=== PATIENT | female | born 1990 | race Caucasian/White ===

== ENCOUNTER 2018-06-07 10:08 | Observation (INO) | payer OTHER ==
[~2018-06-07] VITALS: Ht 157.5 cm; Wt 99.3 kg
[2018-06-07] MEDS ORDERED: PREN-380 PO (10:36)
[2018-06-07] MEDS ORDERED: FERR325E14 PO (10:36)
[2018-06-07 11:00] VITALS: BP 111/77
== END 2018-06-07 13:40 | disposition home or self-care (01) ==
LOC: INTOOBSV 10:08 → MLD 10:08
PROVIDERS: ADMIT Obstetrics & Gynecology; ATTEND Obstetrics & Gynecology
DX: O26.893 Other specified pregnancy related conditions, third trimester (principal); R10.9 Unspecified abdominal pain; Z3A.38 38 weeks gestation of pregnancy
CPT/HCPCS: 76805; G0378; Q0092; 59025; 81000

== ENCOUNTER 2018-06-11 18:03 | Inpatient (IN) | payer OTHER ==
[~2018-06-11] VITALS: Ht 157.5 cm; Wt 102.5 kg
[~2018-06-11 18:03] MED LIST: FERR325E14 PO; PREN-380 PO
[2018-06-11] MEDS ORDERED: OXYTOCIN 20 UNITS in LACTATED RINGERS 1,000 ML IV SCH (18:09)
[2018-06-11] MEDS ORDERED: ONDANSETRON 4 MG/2 ML VIAL IVP PRN (18:10)
[2018-06-11] MEDS: LACTATED RINGERS 1,000 ML IV SCH (18:50)
[2018-06-11 19:35] LABS: BASOPHILS # (AUTO) 0.1 K/uL (0.00-0.22); BASOPHILS % (AUTO) 0.5 % (0.0-2.0); EOSINOPHILS # (AUTO) 0.1 K/uL (0-0.4); EOSINOPHILS % (AUTO) 0.8 % (0.0-4.0); HEMATOCRIT 35.2 % (36-48); HEMOGLOBIN 11.3 g/dL (12.0-16.0); LYMPHOCYTES % (AUTO) 17.8 % (20.5-51.1); MEAN CORPUSCULAR HEMOGLOBIN 26 pg (27-31); MEAN CORPUSCULAR HGB CONC 32 g/dL (33-37); MEAN CORPUSCULAR VOLUME 80.6 fL (80-94); MONOCYTES # (AUTO) 0.7 K/uL (0.8-1.0); MONOCYTES % (AUTO) 5.9 % (1.7-9.3); NEUTROPHILS # (AUTO) 8.5 K/uL (1.8-7.7); PLATELET COUNT (AUTO) 313 K/uL (140-450); RED BLOOD CELL COUNT(AUTO) 4.37 MIL/uL (4.20-5.40); RED CELL DISTRIBUTION WIDTH 15.8 % (11.6-13.7); WHITE BLOOD COUNT (AUTO) 11.3 K/uL (4.8-10.8)
[2018-06-11 19:49] LABS: APPEARANCE,URINE CLEAR (CLEAR); BILIRUBIN,URINE NEGATIVE (NEGATIVE); BLOOD, URINE NEGATIVE (NEGATIVE); COLOR,URINE YELLOW (YELLOW); LEUKOCYTE ESTERASE ,URINE TRACE (NEGATIVE); NITRITE, URINE NEGATIVE (NEGATIVE); UGLUCOSE NEGATIVE (NEGATIVE)
[2018-06-11 20:01] LABS: RBC,URINE 0-5 (RARE) /HPF (0-5)
[2018-06-11 20:01] LABS: ALBUMIN 2.2 g/dL (3.4-5.0); ANION GAP 11.6 (8-16); CARBON DIOXIDE 22.4 mmol/L (21-32); CREATININE 0.6 mg/dL (0.6-1.3); TOTAL BILIRUBIN 0.2 mg/dL (0.0-1.0)
[2018-06-11] MEDS ORDERED: AMPICILLIN 2,000 MG in NACL 0.9% 100 ML IV ONE (20:25)
[2018-06-11 20:36] VITALS: BP 103/61
[2018-06-11] MEDS ORDERED: AMPICILLIN 2,000 MG VIAL ONE (20:38)
[2018-06-11] MEDS ORDERED: MISOPROSTOL 25 MCG TAB ONE (21:08)
[2018-06-11] MEDS: MISOPROSTOL 25 MCG TAB VG SCH (21:09)
[2018-06-12] MEDS: AMPICILLIN 1,000 MG in NACL 0.9% 50 ML IV SCH ×4 (00:25→20:45)
[2018-06-12] MEDS ORDERED: AMPICILLIN 1,000 MG VIAL ONE ×6 (00:28→20:47)
[2018-06-12] MEDS: LACTATED RINGERS 1,000 ML IV SCH ×2 (01:20→11:27)
[2018-06-12] MEDS ORDERED: OXYTOCIN 20 UNITS/LR PREMIX 1,000 ML IV ONE (03:51)
[2018-06-12 04:26] LABS: BARBITURATE, URINE NEG. ng/ml (NEG <=200); BENZODIAZEPINE, URINE NEG. ng/mL (NEG <=200); CANNABINOID, URINE NEG. ng/mL (NEG <=50); COCAINE, URINE NEG. ng/mL (NEG <=300); OPIATE, URINE NEG. ng/mL (NEG <=2000); PHENCYCLIDINE SCREEN,URINE NEG. ng/mL (NEG <=25)
--- NOTE | 2018-06-12 08:14 | NUR ---
PATIENT HAS BEEN SCREENED AND CATEGORIZED LOW NUTRITION RISK. PATIENT WILL BE SEEN WITHIN 7 DAYS OF ADMISSION. 06/18/[address]
[2018-06-12] MEDS: MISOPROSTOL 25 MCG TAB VG SCH (19:35)
[2018-06-12] MEDS ORDERED: MISOPROSTOL 25 MCG TAB ONE (19:37)
[2018-06-12] MEDS ORDERED: MISOPROSTOL 25 MCG TAB VG SCH (22:00)
[2018-06-13] MEDS: AMPICILLIN 1,000 MG in NACL 0.9% 50 ML IV SCH ×3 (00:45→09:22)
[2018-06-13] MEDS ORDERED: AMPICILLIN 1,000 MG VIAL ONE ×5 (00:48→16:59)
[2018-06-13] MEDS: LACTATED RINGERS 1,000 ML IV SCH ×2 (08:04→17:16)
[2018-06-13] MEDS ORDERED: LIDOCAINE 1% 500 MG/50 ML VIAL ONE (10:33)
[2018-06-13] MEDS ORDERED: OXYTOCIN 10 UNITS/ML VIAL ONE (10:33)
[2018-06-13] MEDS ORDERED: BUPIVACAINE 0.125%/NS PREMIX 250 ML EPI SCH (11:55)
[2018-06-13] MEDS ORDERED: OXYTOCIN 20 UNITS in LACTATED RINGERS 1,000 ML IV SCH (21:01)
[2018-06-13] MEDS ORDERED: MEASLES, MUMPS, AND RUBELLA 1 VIAL SQVAC PRN (21:05)
[2018-06-13] MEDS ORDERED: DOCUSATE SODIUM 100 MG GELCAP PO PRN (21:05)
[2018-06-14] MEDS: IBUPROFEN 600 MG TAB PO PRN ×2 (01:47→12:47)
[2018-06-14 08:18] LABS: BASOPHILS # (AUTO) 0.1 K/uL (0.00-0.22); BASOPHILS % (AUTO) 0.7 % (0.0-2.0); EOSINOPHILS # (AUTO) 0.1 K/uL (0-0.4); EOSINOPHILS % (AUTO) 0.6 % (0.0-4.0); HEMATOCRIT 36.6 % (36-48); HEMOGLOBIN 11.7 g/dL (12.0-16.0); LYMPHOCYTES # (AUTO) 2.9 K/uL (2.5-16.5); LYMPHOCYTES % (AUTO) 18.2 % (20.5-51.1); MEAN CORPUSCULAR HEMOGLOBIN 26 pg (27-31); MEAN CORPUSCULAR HGB CONC 32 g/dL (33-37); MEAN CORPUSCULAR VOLUME 80.9 fL (80-94); MONOCYTES # (AUTO) 0.9 K/uL (0.8-1.0); MONOCYTES % (AUTO) 5.8 % (1.7-9.3); NEUTROPHILS # (AUTO) 12.1 K/uL (1.8-7.7); NEUTROPHILS % (AUTO) 74.7 % (42.2-75.2); PLATELET COUNT (AUTO) 299 K/uL (140-450); RED BLOOD CELL COUNT(AUTO) 4.52 MIL/uL (4.20-5.40); RED CELL DISTRIBUTION WIDTH 15.6 % (11.6-13.7); WHITE BLOOD COUNT (AUTO) 16.2 K/uL (4.8-10.8)
[2018-06-14] MEDS: ACETAMINOPHEN 325 MG TAB PO PRN (20:22)
[2018-06-15] MEDS ORDERED: FERR325E14 PO (08:28)
[2018-06-15] MEDS ORDERED: ACET-9800 PO (08:29)
[2018-06-15] MEDS: ACETAMINOPHEN 325 MG TAB PO PRN (15:31)
== END 2018-06-15 18:00 | disposition home or self-care (01) | DRG 560 ==
LOC: MLD 18:03 → MFCC 06-13 23:21
PROVIDERS: ADMIT Obstetrics & Gynecology; ATTEND Obstetrics & Gynecology
PROC: 10E0XZZ Delivery of Products of Conception, External Approach (ICD-10-PCS; principal; 2018-06-13)
PROC: 3E0R3BZ Introduction of Anesthetic Agent into Spinal Canal, Percutaneous Approach (ICD-10-PCS; 2018-06-13)
PROC: 00HU33Z Insertion of Infusion Device into Spinal Canal, Percutaneous Approach (ICD-10-PCS; 2018-06-13)
PROC: 3E033VJ Introduction of Other Hormone into Peripheral Vein, Percutaneous Approach (ICD-10-PCS; 2018-06-13)
DX: O99.824 Streptococcus B carrier state complicating childbirth (principal); Z37.0 Single live birth; Z3A.39 39 weeks gestation of pregnancy
CPT/HCPCS: 36415; 51702; 59200; 59409; 76815; 80053; 80305; 81001; 85025; 86592; 86870; 86886; 86900; 86901; 87086; J0290; J2001; J2590; J3490; J7120; Q0092